=== PATIENT | male | born 1985 | race Native Hawaiian/Other Pacific Islander ===

== ENCOUNTER 2021-02-27 15:55 | Outpatient (CLI) | payer OTHER | END 2021-02-27 19:04 | disposition home or self-care (01) | LOC: RAD 15:55 | PROVIDERS: ATTEND Registered Nurse | DX: M25.552 Pain in left hip (principal); M54.42 Lumbago with sciatica, left side ==

== ENCOUNTER 2022-02-25 09:41 | Outpatient (CLI) | payer OTHER | END 2022-02-25 19:03 | disposition home or self-care (01) | LOC: MRI 09:41 | PROVIDERS: ATTEND Orthopaedic Surgery | DX: M25.552 Pain in left hip (principal); M54.16 Radiculopathy, lumbar region; M54.59 Other low back pain; M51.37 Other intervertebral disc degeneration, lumbosacral region; R29.4 Clicking hip ==

== ENCOUNTER 2022-02-28 11:10 | Outpatient (CLI) | payer OTHER | END 2022-02-28 18:59 | disposition home or self-care (01) | LOC: MRI 11:10 | PROVIDERS: ATTEND Nurse Practitioner | DX: M25.552 Pain in left hip (principal) ==

== ENCOUNTER 2022-10-16 11:42 | Outpatient (CLI) | payer OTHER | END 2022-10-16 19:04 | disposition home or self-care (01) | LOC: RAD 11:42 | PROVIDERS: ATTEND Physician Assistant | DX: M54.59 Other low back pain (principal) ==

== ENCOUNTER 2022-11-18 11:01 | Outpatient (CLI) | payer OTHER | END 2022-11-18 19:04 | disposition home or self-care (01) | LOC: MRI 11:01 | PROVIDERS: ATTEND Nurse Practitioner | DX: M48.062 Spinal stenosis, lumbar region with neurogenic claudication (principal) ==